=== PATIENT | male | born 1980 | race Caucasian/White ===

== ENCOUNTER 2017-02-25 23:30 | Emergency (ER) | payer OTHER ==
[~2017-02-25 23:30] MED LIST: DICLOFENAC PO; PEN-VEE K PO; PHENERGAN25 MG PO; VICODIN 5/1 TAB 5/50 PO
== END 2017-02-26 00:36 | disposition home or self-care (01) ==
LOC: SED 23:30
DX: S05.01XA Injury of conjunctiva and corneal abrasion without foreign body, right eye, initial encounter (principal); F17.200 Nicotine dependence, unspecified, uncomplicated; X58.XXXA Exposure to other specified factors, initial encounter; Y92.009 Unspecified place in unspecified non-institutional (private) residence as the place of occurrence of the external cause
CPT/HCPCS: 99283